=== PATIENT | female | born 1975 | race Caucasian/White ===

== ENCOUNTER 2018-09-08 11:51 | Emergency (ER) | payer BC, OTHER ==
[~2018-09-08] VITALS: Ht 157.5 cm; Wt 65.8 kg
[~2018-09-08 11:51] MED LIST: FLUO40CA12 PO; HYDR-3583 PO; HYDR1TAB8 OP; IBP800T PO
[2018-09-08] MEDS ORDERED: BETAMETHASONE ACE/NA PHOS 6 MG/ML (CELESTONE SOLUSPAN) IM ONE (12:45)
[2018-09-08] MEDS ORDERED: TRIAMCINOLONE ACET (KENALOG-40) 40 MG/ML 1 ML VIAL IM ONE (12:45)
--- NOTE | 2018-09-08 12:46 | ED Integumentary General ---
General Chief Complaint: Skin/Wound Problems Stated Complaint: RASH ON ARMS Nursing Triage Note: Pt c/o poison nayla on arms, legs, chest since last Tuesday. Pt saw PCP Char and was given a steroid. Pt reports symptoms have worsened. Pt covered in blisters. Source: patient Exam Limitations: no limitations History of Present Illness Date Seen by Provider: Sep 08, 2018 Time Seen by Provider: 12:42 Initial Comments To ER per private vehicle with reports of a rash to her arms legs and chest since last Tuesday09/01/18 after working in the yard. She knows this is poison nayla as she was exposed to it, she saw [facility] 3 days ago and received an injection of steroid that "started with D". She denies any improvement and is still noting new lesions to pop up on her arms and leg. Timing/Duration: constant, getting worse Severity: moderate Location: torso, extremities Associated Symptoms: blisters Allergies and Home Medications Allergies Coded Allergies: No Known Drug Allergies (Unverified , 03/14/12) Home Medications Fluoxetine Hcl 40 Mg Capsule, 1 EACH PO DAILY, (Reported) Hydrocodone Bit/Ibuprofen 1 Each Tablet, 1 EACH OP Q 4 - 6 HRS PRN Prescribed by: KEELY THOMAS on 03/14/12 0902 Patient Home Medication List Home Medication List Reviewed: Yes Review of Systems Review of Systems Constitutional: see HPI EENTM: see HPI Respiratory: no symptoms reported Cardiovascular: no symptoms reported Genitourinary: no symptoms reported Musculoskeletal: no symptoms reported Skin: see HPI Psychiatric/Neurological: No Symptoms Reported Endocrine: No Symptoms Reported Hematologic/Lymphatic: No Symptoms Reported Past Xmnxifr-Smvlcq-Gjyqgj Hx Patient Social History Alcohol Use: Denies Use Recreational Drug Use: No 2nd Hand Smoke Exposure: No Recent Foreign Travel: No Contact w/Someone Who Travel: No Recent Infectious Disease Expo: No Immunizations Up To Date Date of Influenza Vaccine: Nov 29, 2011 Past Medical History Surgeries: No Respiratory: No Cardiac: No Neurological: No Gastrointestinal: No Musculoskeletal: No Endocrine: No Cancer: No Psychosocial: Yes Depression Integumentary: No Physical Exam Vital Signs Vital Signs - First Documented 09/08/18 12:27 Temp 97.5 Pulse 96 Resp 18 B/P (MAP) 151/106 (121) Pulse Ox 96 O2 Delivery Room Air Capillary Refill : Less Than 3 Seconds General Appearance: WD/WN, no apparent distress HEENT: PERRL/EOMI, normal ENT inspection Respiratory: no respiratory distress, no accessory muscle use Extremities: normal range of motion, non-tender, other (linear groupings of erythematous vesicles and papules that are pruritic about the exposed upper chest, forearms and anterior lower legs. This is consistent with the alleged poison nayla diagnosis.") Neurologic/Psychiatric: alert, normal mood/affect, oriented x 3 Skin: normal color, warm/dry Progress/Results/Core Measures Results/Orders My Orders Orders - ASHLY IGLESIAS APRN Betamethasone Acet/Na Phos Inj ([place] (09/08/18 12:45) Triamcinolone Acetonide Im (Kenalog-40) (09/08/18 12:45) Vital Signs/I&O 09/08/18 12:27 Temp 97.5 Pulse 96 Resp 18 B/P (MAP) 151/106 (121) Pulse Ox 96 O2 Delivery Room Air Blood Pressure Mean: 121 Departure Impression Primary Impression: Rhus dermatitis Disposition: 01 HOME, SELF-CARE Condition: Stable Departure-Patient Inst. Decision time for Depature: 12:46 Referrals: [facility] (PCP) Primary Care Physician Patient Instructions: Poison Nayla Add. Discharge Instructions: You Were given both a short acting steroid (betamethasone) and a long-acting steroid Kenalog). This should help with symptoms. Continue to use the calamine lotion. Despite the steroids and calamine lotion you're still looking about 1-3 weeks for complete resolution of this. All discharge instructions reviewed with patient and/or family. Voiced understanding. ASHLY IGLESIAS APRN Sep 08, 2018 12:46
[2018-09-08 13:15] VITALS: BP 151/106
== END 2018-09-08 13:16 | disposition home or self-care (01) ==
LOC: EDUNIT# 11:51 → ER 11:52
DX: L23.7 Allergic contact dermatitis due to plants, except food (principal); F32.9 Major depressive disorder, single episode, unspecified
CPT/HCPCS: 96372; 99284

== ENCOUNTER 2021-11-27 15:55 | Emergency (ER) | payer BC ==
[~2021-11-27] VITALS: Ht 157.5 cm; Wt 63.5 kg
[2021-11-27 16:02] VITALS: BP 120/73
[2021-11-27 16:28] LABS: BASOPHILS % (AUTO) 0 % (0-10); EOSINOPHILS % (AUTO) 0 % (0-10); HEMATOCRIT 41 % (35-52); HEMOGLOBIN 13.8 g/dL (11.5-16.0); LYMPHOCYTES # (AUTO) 1.2 10^3/uL (1.0-4.0); LYMPHOCYTES % (AUTO) 11 % (12-44); MEAN CORPUSCULAR HEMOGLOBIN 30 pg (25-34); MEAN CORPUSCULAR HGB CONC 33 g/dL (32-36); MEAN CORPUSCULAR VOLUME 91 fL (80-99); MONOCYTES # (AUTO) 0.5 10^3/uL (0.0-1.0); MONOCYTES % (AUTO) 4 % (0-12); NEUTROPHILS # (AUTO) 9.7 10^3/uL (1.8-7.8); NEUTROPHILS % (AUTO) 84 % (42-75); PLATELET COUNT 329 10^3/uL (130-400); WHITE BLOOD COUNT 11.4 10^3/uL (4.3-11.0)
[2021-11-27 16:34] LABS: CHLORIDE 106 MMOL/L (98-107)
[2021-11-27 16:35] LABS: ALBUMIN 4.2 GM/DL (3.2-4.5); POTASSIUM 3.8 MMOL/L (3.6-5.0); SODIUM 144 MMOL/L (135-145)
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
[2021-11-27 16:36] LABS: CALCIUM 9.2 MG/DL (8.5-10.1)
[2021-11-27 16:37] LABS: GLUCOSE 126 MG/DL (70-105); TOTAL PROTEIN 7.5 GM/DL (6.4-8.2)
[2021-11-27 16:38] LABS: CLARITY,URINE CLEAR; COLOR,URINE YELLOW; GLUCOSE, URINE (UA) NEGATIVE (NEGATIVE); KETONES,URINE 2+ (NEGATIVE); LEUKOCYTE ESTERASE ,URINE NEGATIVE (NEGATIVE); NITRITE,URINE NEGATIVE (NEGATIVE); PH,URINE 5.5 (5-9); PROTEIN,URINE 1+ (NEGATIVE)
[2021-11-27 16:38] LABS: CARBON DIOXIDE 21 MMOL/L (21-32)
[2021-11-27 16:39] LABS: BILIRUBIN,TOTAL 0.4 MG/DL (0.1-1.0)
[2021-11-27 16:41] LABS: ALKALINE PHOSPHATASE 45 U/L (40-136); CREATININE SERUM 0.78 MG/DL (0.60-1.30); GFR ESTIMATED 96
[2021-11-27 16:42] LABS: BUN/CREATININE RATIO 21
[2021-11-27 16:44] LABS: ALANINE AMINOTRANSFERASE 15 U/L (0-55); SALICYLATE < 5.0 MG/DL (5.0-20.0)
[2021-11-27 16:52] LABS: ACETAMINOPHEN < 10 UG/ML (10-30)
[2021-11-27 16:56] LABS: BACTERIA,URINE FEW /HPF; BILIRUBIN,URINE NEGATIVE (NEGATIVE); WBC,URINE 0-2 /HPF
[2021-11-27 16:58] LABS: AMPHETAMINE SCREEN, URINE NEGATIVE (NEGATIVE); BARBITURATE SCREEN URINE NEGATIVE (NEGATIVE); BENZODIAZEPINES SCREEN URINE NEGATIVE (NEGATIVE); CANNABINOID SCREEN, URINE POSITIVE (NEGATIVE); COCAINE SCREEN URINE NEGATIVE (NEGATIVE); METHADONE STAT NEGATIVE (NEGATIVE); OPIATE SCREEN URINE NEGATIVE (NEGATIVE); OXYCODONE STAT NEGATIVE (NEGATIVE); PROPOXYPHENE STAT NEGATIVE (NEGATIVE); TRICYCLIC ANTIDEPRESSANTS SCRE NEGATIVE (NEGATIVE)
[2021-11-27 18:05] LABS: FREE T4 (FREE THYROXINE) 0.87 NG/DL (0.70-1.48)
[2021-11-27] MEDS ORDERED: ALPRAZolam 0.25 MG (XANAX) TAB PO ONE (20:00)
[2021-11-27] MEDS ORDERED: LACTATED RINGERS 1,000 ML IV ONE ×2 (20:00)
== END 2021-11-27 21:23 | disposition left against medical advice (07) ==
LOC: EDUNIT# 15:55 → ER 15:57
DX: T14.91XA Suicide attempt, initial encounter (principal); F32.A Depression, unspecified; Z20.822 Contact with and (suspected) exposure to COVID-19
CPT/HCPCS: 80053; 80306; 81000; 82607; 82746; 84439; 84443; 84703; 85025; 87088; 87636; 93041; 99284; G0480 ×3; 36415; 80320; 80329; 93005

== ENCOUNTER → 2023-02-02 | Outpatient (CLI) | payer SELFPAY | END | disposition home or self-care (01) | LOC: PREOP 05:49 | PROVIDERS: ATTEND Specialist | DX: Z01.818 Encounter for other preprocedural examination (principal) ==